=== PATIENT | male | born 1975 | race American Indian/Alaskan Native ===

== ENCOUNTER 2016-12-23 13:54 | Inpatient (IN) | payer SELFPAY ==
[2016-12-23] MEDS ORDERED: HEPARIN/NS 5000 UNIT/500ML(CATH LAB) 1,000 ML IR ONE (14:19)
[2016-12-23] MEDS ORDERED: XYLOCAINE 2% INFILTRATI ONE (14:20)
[2016-12-23] MEDS ORDERED: NITROGLYCERIN SYRINGE 3 ML ONE (14:20)
[2016-12-23] MEDS ORDERED: CALAN ONE (14:20)
[2016-12-23] MEDS ORDERED: NACL 0.9% 0 ML ONE (14:21)
[2016-12-23] MEDS ORDERED: SUBLIMAZE ONE (14:22)
[2016-12-23] MEDS ORDERED: ANGIOMAX IV ONE (14:22)
[2016-12-23] MEDS ORDERED: VERSED ONE (14:22)
[2016-12-23] MEDS ORDERED: LOPRESSOR IV ONE ×2 (14:23→15:00)
[2016-12-23] MEDS ORDERED: HEPARIN 10,000 UNITS/10 ML ONE (14:23)
[2016-12-23] MEDS ORDERED: NACL 0.9% 500 ML 500 ML ONE (14:28)
--- NOTE | 2016-12-23 14:34 | History and Physical Report ---
History of Present Illness Date of examination: 12/23/16 Date of admission: 12/23/2016 Chief complaint: chest pain History of present illness: Pt is a 41 YO male with a past medical history significant for HTN and pre-DM. He is previously unknown to our practice. He presented with c/o chest pain since yesterday AM. He reports that for the past 1 week, he has been experiencing a sore throat. He went to his PCP (in [place], [place]) on Monday and was prescribed some medications for the sore throat (he does not recall the name of the medications). Yesterday AM, he awoke with midsternal chest discomfort. He states that the discomfort is nonexertional, nonradiating and intermittent with no clear aggravating or alleviating factors. He denies any SOB, palpitations, n/v, diaphoresis, dizziness or syncope. He reports that prior to yesterday AM, he was not experiencing any chest pain and was exercising regularly without difficulty. He reports compliance with his home medications, which include amlodipine and losartan. He presented to his PCP again today with these complaints and was referred to ED for further eval/ management of abnormal EKG. Following arrival to [facility] ED, EKG demonstrated SR with ST elevations in lateral leads and code STEMI was activated. Pt was taken to lab intern for emergent LHC. Past History Past Medical History: diabetes (pre), hypertension Social history: denies: smoking, alcohol abuse, prescription drug abuse Family history: no significant family history Medications and Allergies Allergies Allergy/AdvReac Type Severity Reaction Status Date / Time No Known Allergies Allergy Unverified 12/23/16 14:19 Home Medications Medication Instructions Recorded Confirmed Last Taken Type Ibuprofen [Motrin 800 MG tab] 800 mg PO BID #30 tablet 12/23/16 Unknown Rx Losartan [Cozaar] 50 mg PO DAILY #30 tablet 12/23/16 Unknown Rx Metoprolol [Lopressor TAB] 25 mg PO BID #60 tablet 12/23/16 Unknown Rx amLODIPine [Norvasc] 10 mg PO DAILY tablet 12/23/16 Unknown Rx Review of Systems Constitutional: no weight loss, no weight gain, no fever, no chills, no sweats Ears, nose, mouth and throat: no ear pain, no nose pain, no sinus pressure, no sinus pain Cardiovascular: chest pain, high blood pressure, no orthopnea, no palpitations, no rapid/irregular heart beat, no edema, no syncope, no lightheadedness, no shortness of breath, no dyspnea on exertion, no leg edema, no decreased exercise tolerance Respiratory: no cough, no shortness of breath, no dyspnea on exertion, no congestion, no wheezing, no pain on inspiration Gastrointestinal: no abdominal pain, no nausea, no vomiting, no diarrhea, no constipation, no change in bowel habits Genitourinary Male: no dysuria, no hematuria, no flank pain, no discharge, no urinary frequency, no urinary hesitancy Musculoskeletal: no neck stiffness, no neck pain, no arm numbness/tingling, no low back pain, no shooting leg pain, no leg numbness/tingling, no redness of joints Integumentary: no rash, no pruritis, no redness, no sores, no wounds Neurological: no head injury, no paralysis, no weakness, no parathesias, no numbness, no tingling, no seizures, no syncope Psychiatric: no anxiety Endocrine: no cold intolerance, no heat intolerance Hematologic/Lymphatic: no easy bruising, no easy bleeding, no lymphadenopathy Allergic/Immunologic: no urticaria, no wheezing, no persistent infections Physical Examination Vital Signs Temp Pulse Resp BP Pulse Ox 98.5 F 116 H 16 147/91 100 12/23/16 14:19 12/23/16 14:19 12/23/16 14:19 12/23/16 14:19 12/23/16 14:19 General appearance: no acute distress HEENT: Positive: PERRL, Normocephaly, Mucus Membranes Moist Neck: Positive: neck supple, trachea midline Cardiac: Positive: S1/S2, Tachycardia Lungs: Positive: clear to auscultation Neuro: Positive: Grossly Intact, Cranial Nerve 2-12 Intact Abdomen: Positive: Unremarkable, Soft, Active Bowel Sounds. Negative: Tender Skin: Positive: Clear. Negative: Rash, Wound Musculoskeletal: No Fluid Collection, No Pain, Normal Range of Motion Extremities: Absent: edema Results - Imaging and Cardiology Echo: pending Cardiac cath: pending EKG: report reviewed, image reviewed EKG interpretations - Telemetry EKG Rhythm: Sinus Rhythm - EKG Sinus rhythms and dysrhythmias: sinus rhythm Chamber hypertrophy or enlargement: left ventricular hypertro Repolarization changes or abnormalities: repolarization abn secondary to ventricular hypertrophy, ST or T wave suggestive of ischemia Myocardial infarction: lateral NM (acute or rece Assessment and Plan Assessment: NSTEMI type II ? Pericarditis Abnormal EKG HTN Sinus tachycardia Pre-DM Plan: s/p LHC which demonstrated normal coronary arteries, normal LV function. Chest pain currently resolved. Obtain echo. Initiate motrin, 800mg BID. Initiate lopressor, 25mg PO BID. Resume home losartan and amlodipine. Admit to telemetry. Possible d/c home in AM. Assessment and plan reviewed with pt and pt's . The patient has been seen in conjunction with Dr. Mcrae who agrees with the assessment and plan of care.
[2016-12-23] MEDS: HEPARIN 10,000 UNITS/10 ML ONE ×2 (14:52→14:58)
[2016-12-23] MEDS ORDERED: NACL 0.9% 500 ML 500 ML IV SCH (15:00)
--- NOTE | 2016-12-23 15:20 | Emergency Department Report ---
ED Chest Pain HPI - General Chief Complaint: Chest Pain Stated Complaint: CHEST PAIN Time Seen by Provider: 12/23/16 14:23 Source: patient Mode of arrival: Ambulatory Limitations: No Limitations - History of Present Illness Initial Comments: Patient was sent by a family physician in [place] for evaluation of an abnormal EKG. He arrived here transported by his I private vehicle. Apparently he has been evaluated since the for as I understand it to the neck pain. The pain was in his anterior neck. His laboratory studies were unrevealing. Yesterday he tells me that the pain radiated down into his anterior chest. He had difficulty describing it. It did not radiate to his arms. It was persistent at the time of my encounter although moderate in intensity. Patient denies shortness of breath nausea vomiting or unusual sweating. He states he doesn't smoke nor does he have a first-degree relative with known coronary artery disease. He denies cocaine use. He works in the [employer] industry. He states that he's been told he is "prediabetic". An EKG was brought to my attention from triage. There was ST elevation in the high lateral leads with reciprocal changes. There was J-point elevation particularly in V2. It was meeting reasonable STEMI criteria. There by a STEMI code was called. I notified Dr. Mcrae of the history and EKG findings. Complaint: chest pain -: hour(s) (since yesterday) Onset: during rest Pain Location: substernal Severity: moderate Severity scale (0 -10): 7 Quality: other (difficult to describe) Consistency: constant (persistent) Improves With: nothing Worsens With: nothing re: denies: nausea, vomting, diaphoresis, dyspnea Other Symptoms: denies: cough, fever, syncope Treatments Prior to Arrival: none Aspirin use within the Past 7 Days: (0) No - Related Data Allergies Allergy/AdvReac Type Severity Reaction Status Date / Time No Known Allergies Allergy Unverified 12/23/16 14:19 Heart Score - HEART Score History: Moderately suspicious EKG: Significant ST-depression Age: < 45 Risk factors: 1-2 risk factors Troponin: < normal limit HEART Score: 4 ED Review of Systems ROS: Stated complaint: CHEST PAIN Other details as noted in HPI Constitutional: denies: chills, fever Eyes: denies: eye pain, eye discharge, vision change ENT: denies: ear pain, throat pain Respiratory: denies: cough, shortness of breath, wheezing Cardiovascular: as per HPI, chest pain (and neck pain as described). denies: palpitations Endocrine: no symptoms reported Gastrointestinal: denies: abdominal pain, nausea, diarrhea Genitourinary: denies: urgency, dysuria Musculoskeletal: denies: back pain, joint swelling, arthralgia Skin: denies: rash, lesions Neurological: denies: headache, weakness, paresthesias Psychiatric: denies: anxiety, depression Hematological/Lymphatic: denies: easy bleeding, easy bruising ED Past Medical Hx - Past Medical History Previous Medical History?: Yes Hx Hypertension: Yes Hx Diabetes: Yes (Pre-diabetic) - Surgical History Past Surgical History?: No - Social History Smoking Status: Never Smoker ED Physical Exam - General Limitations: No Limitations General appearance: alert, in no apparent distress - Head Head exam: Present: atraumatic, normocephalic - Eye Eye exam: Present: normal appearance, PERRL, EOMI. Absent: scleral icterus - ENT ENT exam: Present: mucous membranes moist - Neck Neck exam: Present: normal inspection. Absent: tenderness, meningismus - Respiratory Respiratory exam: Present: normal lung sounds bilaterally. Absent: respiratory distress - Cardiovascular Cardiovascular Exam: Present: regular rate, normal rhythm. Absent: systolic murmur, diastolic murmur, rubs, gallop - GI/Abdominal GI/Abdominal exam: Present: soft, normal bowel sounds. Absent: distended, tenderness, guarding, rebound, rigid - Rectal Rectal exam: Present: deferred - Extremities Exam Extremities exam: Present: normal inspection - Back Exam Back exam: Present: normal inspection - Neurological Exam Neurological exam: Present: alert, oriented X3, CN II-XII intact. Absent: motor sensory deficit - Psychiatric Psychiatric exam: Present: normal affect, normal mood - Skin Skin exam: Present: warm, dry, intact, normal color. Absent: rash ED Course Vital Signs 12/23/16 12/23/16 12/23/16 14:14 14:16 14:19 Temperature 98.5 F Pulse Rate 131 H 115 H 116 H Respiratory 18 22 16 Rate Blood Pressure 180/83 147/91 Blood Pressure [Left] O2 Sat by Pulse 99 100 100 Oximetry 12/23/16 12/23/16 12/23/16 14:27 14:30 15:06 Temperature 97.9 F Pulse Rate 113 H 95 H 116 H Respiratory 16 12 Rate Blood Pressure 145/92 180/83 Blood Pressure 150/96 [Left] O2 Sat by Pulse 100 100 Oximetry - Reevaluation(s) Reevaluation #1: Dr. Mcrae requested that we give the patient. I instructed the nurse to give this slowly with proper hemodynamic monitoring and parameters. 12/23/16 15:22 Reevaluation #2: The patient was taken for cardiac catheterization. 12/23/16 15:23 MARY score - Mary Score Age > 65: (0) No Aspirin use within the Past 7 Days: (0) No 3 or more CAD Risk Factors: (0) No 2 or more Angina events in past 24 hrs: (0) No Known CAD with more than 50% Stenosis: (0) No Elevated Cardiac Markers: (0) No ST Deviation Greater than 0.5mm: (1) Yes MARY Score: 1 ED Medical Decision Making - EKG Data -: EKG Interpreted by Me - EKG Data Interpretation: other (consistent with high lateral STEMI) Critical care attestation.: If time is entered above; I have spent that time in minutes in the direct care of this critically ill patient, excluding procedure time. ED Disposition Clinical Impression: ST elevation (STEMI) myocardial infarction Qualifiers: Involved coronary artery: unspecified coronary artery Qualified Code(s): I21.3 - ST elevation (STEMI) myocardial infarction of unspecified site Disposition: OP ADMIT IP TO THIS HOSP Is pt being admited?: Yes Does the pt Need Aspirin: Yes Condition: Stable Time of Disposition: 15:24
[2016-12-23] MEDS ORDERED: ZOFRAN IV PRN (15:24)
--- NOTE | 2016-12-23 15:40 | Discharge Summary ---
Providers - Providers Date of Admission: 12/23/2016 Date of discharge: 12/24/16 Attending physician: Dr. Mcrae 12/23/16 Consult to Cardiac Rehabilitation [CONS] Routine Reason For Exam: post pci Hospitalization Reason for admission: chest pain; abnormal EKG Condition: Stable Pertinent studies: LHC - see cath report Echo - see echo report Hospital course: Pt is a 41 YO male with a past medical history significant for HTN and pre-DM. He presented on 12/23/2016 with c/o chest pain since AM. He reports that for the past 1 week, he had been experiencing a sore throat. He went to his PCP (in [place], [place]) on Monday and was prescribed some medications for the sore throat (he does not recall the name of the medications). Yesterday AM, he awoke with midsternal chest discomfort. He states that the discomfort is nonexertional, nonradiating and intermittent with no clear aggravating or alleviating factors. He denies any SOB, palpitations, n/v, diaphoresis, dizziness or syncope. He reports that prior to yesterday AM, he was not experiencing any chest pain and was exercising regularly without difficulty. He presented to his PCP again today with these complaints and was referred to ED for further eval/management of abnormal EKG. Following arrival to [facility] ED, EKG demonstrated SR with ST elevations in lateral leads and code STEMI was activated. Pt was taken to laborer petroleum ref[facility] for emergent LHC which revealed normal coronaries, normal LV. Disposition: DC-01 TO HOME OR SELFCARE - Discharge Diagnoses (1) Non-ST elevation myocardial infarction (NSTEMI), type 2 Status: Acute (2) Normal coronary arteries Status: Chronic (3) HTN (hypertension) Status: Chronic (4) Pre-diabetes Status: Chronic Core Measure Documentation - Palliative Care Palliative Care/ Comfort Measures: Not Applicable - Core Measures Any of the following diagnoses?: acute KS - Acute KS Discharge Requirements Aspirin at discharge: Yes GODFREY/ARB for LVSD if EF <40%: Not Applicable Beta elizabeth at discharge: Yes Statin for LDL = or >100 mg/dl on DC: Yes Exam - Constitutional Vitals: Temp Pulse Resp BP Pulse Ox 97.9 F 116 H 12 180/83 100 12/23/16 14:27 12/23/16 15:06 12/23/16 14:30 12/23/16 15:06 12/23/16 14:30 Plan Activity: advance as tolerated Diet: low salt Wound: open to air, keep clean and dry, per your surgeon's advice Follow up with: JUNIOR MCRAE MD [Staff Physician] - 7 Days ([facility] office on 01/02/2017 @ 11:00AM) Prescriptions: Atorvastatin Calcium [Lipitor] 40 mg PO HS #30 tablet Ibuprofen [Motrin 800 MG tab] 800 mg PO BID #30 tablet Losartan [Cozaar] 50 mg PO DAILY #30 tablet Metoprolol [Lopressor TAB] 25 mg PO BID #60 tablet
[2016-12-23 15:46] LABS: Creatine Kinase MB 7.4 ng/mL (0.0-4.0)
--- NOTE | 2016-12-23 15:51 | Cardiac Catherization Report ---
LEFT HEART CATHETERIZATION CLINICAL INFORMATION: A 41-year-old gentleman with history of hypertension who was having chest pain since yesterday, went to his PCP and showed abnormalities in EKG, sent to the ED, showed ST elevation in lateral leads with depression inferiorly, brought emergently to cardiac cath lab radiological technologist for left heart catheterization. The procedure details of left heart catheterization, was performed in the right radial artery, sterile technique, local anesthesia. Normal Jason test. A 6-[place] radial sheath inserted. PROCEDURE FINDINGS: Left system engaged with an EBU 3.5 catheter. Left main is large and patent, bifurcates into large LAD, is patent from proximally and distally. Diagonal 1 is a medium caliber vessel, it is patent. Circumflex is a large caliber vessel, patent, goes into medium caliber OM1. OM2 that is patent. OM1 is small caliber and patent. RCA was engaged with JR4, is a large dominant vessel, patent, bifurcates into medium caliber PDA. PLV is patent. LV gram done in CYMRO and RIVAS view shows normal LV function. LVEDP of 90 mmHg, LV is 148/5. Aortic is 145/93. No gradient across the aortic valve on pullback. 6-[place] catheter was taken over a guidewire, 6-[place] radial sheath was discontinued. Radial dressing applied. No hematoma, no bleeding. The patient was chest pain free. SUMMARY: 1. Patent coronaries, epicardial vessels. No occlusive disease noted in the lateral territory. Normal LV function. 2. EKG changes, possible pericarditis. JOB# [id number] PAUL/ZOË
[2016-12-23 16:43] LABS: BUN/Creatinine Ratio 12; Blood Urea Nitrogen 15 mg/dL (9-20); Calcium 9.4 mg/dL (8.4-10.2); Carbon Dioxide 22 mmol/L (22-30); Glucose 116 mg/dL (75-100)
[2016-12-23 16:44] LABS: Anion Gap 26 mmol/L; Chloride 92.7 mmol/L (98-107); Potassium 3.5 mmol/L (3.6-5.0); Sodium 137 mmol/L (137-145)
[2016-12-23 17:00] LABS: Hematocrit 42.6 % (35.5-45.6); Hemoglobin 14.1 gm/dl (11.8-15.2); Mean Corpuscular HGB Conc 33 % (32-34); Mean Corpuscular Hemoglobin 27 pg (28-32); Mean Corpuscular Volume 82 fl (84-94); Platelet Count 362 K/mm3 (140-440); Red Blood Count 5.17 M/mm3 (3.65-5.03); Red Cell Distribution Width 15.2 % (13.2-15.2); White Blood Count 14.9 K/mm3 (4.5-11.0)
[2016-12-23 20:36] LABS: Creatine Kinase MB 5.9 ng/mL (0.0-4.0)
[2016-12-23] MEDS: LOPRESSOR PO SCH (21:24)
[2016-12-23] MEDS: COZAAR PO SCH (21:25)
[2016-12-23] MEDS ORDERED: MOTRIN PO SCH (22:00)
[2016-12-24 05:38] LABS: Basophils % (Auto) 0.4 % (0.0-1.8); Eosinophils % (Auto) 0.7 % (0.0-4.3); Hematocrit 39.3 % (35.5-45.6); Mean Corpuscular HGB Conc 33 % (32-34); Mean Corpuscular Hemoglobin 27 pg (28-32); Mean Corpuscular Volume 81 fl (84-94); Platelet Count 331 K/mm3 (140-440); Red Blood Count 4.84 M/mm3 (3.65-5.03); Red Cell Distribution Width 15.4 % (13.2-15.2); White Blood Count 12.2 K/mm3 (4.5-11.0)
[2016-12-24 06:06] LABS: Creatine Kinase MB 4.3 ng/mL (0.0-4.0)
[2016-12-24 06:11] LABS: Calcium 8.8 mg/dL (8.4-10.2); Chloride 95.4 mmol/L (98-107); Potassium 3.4 mmol/L (3.6-5.0)
--- NOTE | 2016-12-24 09:06 | XRay Report ---
FINAL REPORT EXAM: XR CHEST 1V AP HISTORY: post pci TECHNIQUE: AP portable view(s) of the chest obtained. PRIORS: None. FINDINGS: No mediastinal shift. Cardiac silhouette is not enlarged. No pneumothorax, effusion, or focal pulmonary opacity identified. No acute skeletal findings. IMPRESSION: No acute pulmonary finding identified.
[2016-12-24] MEDS: COZAAR PO SCH (09:36)
[2016-12-24] MEDS: LOPRESSOR PO SCH (09:37)
[2016-12-24 09:41] VITALS: BP 112/74
[2016-12-24] MEDS ORDERED: NORVASC PO SCH (10:00)
[2016-12-24] MEDS ORDERED: BABY ASPIRIN PO SCH (10:00)
[2016-12-24] MEDS ORDERED: K-DUR PO SCH (10:00)
== END 2016-12-24 13:04 | disposition home or self-care (01) | DRG 282 ==
LOC: ED 13:54 → 4A 14:43
PROVIDERS: ADMIT Internal Medicine; ATTEND Internal Medicine
PROC: 4A023N7 Measurement of Cardiac Sampling and Pressure, Left Heart, Percutaneous Approach (ICD-10-PCS; principal; 2016-12-23)
PROC: B2111ZZ Fluoroscopy of Multiple Coronary Arteries using Low Osmolar Contrast (ICD-10-PCS; 2016-12-23)
PROC: B2151ZZ Fluoroscopy of Left Heart using Low Osmolar Contrast (ICD-10-PCS; 2016-12-23)
DX: I21.A1 Myocardial infarction type 2 (principal); I21.3 ST elevation (STEMI) myocardial infarction of unspecified site; I10 Essential (primary) hypertension
CPT/HCPCS: 36415; 71010; 80048; 80061; 82550; 82553; 82962; 84484; 85025; 85027; 93005; 93010; 93306; A9270-GY; J0583; J1644; J2250; J3010; J7040

== ENCOUNTER 2020-01-20 00:38 | Emergency (ER) | payer OTHER ==
[2020-01-20 04:18] VITALS: BP 173/117
== END 2020-01-20 03:12 ==
LOC: ED 00:38
DX: M54.2 Cervicalgia (principal); R51.9 Headache, unspecified; Z53.21 Procedure and treatment not carried out due to patient leaving prior to being seen by health care provider

== ENCOUNTER 2020-01-26 20:58 | Emergency (ER) | payer OTHER ==
[2020-01-26 21:55] LABS: Basophils # (Auto) 0.1 K/mm3 (0.0-0.1); Basophils % (Auto) 0.9 % (0.0-1.8); Eosinophils % (Auto) 0.6 % (0.0-4.3); Hematocrit 43.2 % (35.5-45.6); Hemoglobin 14.4 gm/dl (11.8-15.2); Lymphocytes # (Auto) 2.8 K/mm3 (1.2-5.4); Lymphocytes % (Auto) 38.9 % (13.4-35.0); Mean Corpuscular HGB Conc 33 % (32-34); Mean Corpuscular Volume 84 fl (84-94); Monocytes # (Auto) 0.5 K/mm3 (0.0-0.8); Monocytes % (Auto) 7.6 % (0.0-7.3); Platelet Count 238 K/mm3 (140-440); Red Blood Count 5.11 M/mm3 (3.65-5.03); Red Cell Distribution Width 14.9 % (13.2-15.2)
--- NOTE | 2020-01-26 21:58 | XRay Report ---
CHEST 1 VIEW 01/26/2020 9:50 PM INDICATION / CLINICAL INFORMATION: Chest Pain. COMPARISON: 07/26/2019. FINDINGS: SUPPORT DEVICES: None. HEART / MEDIASTINUM: No significant abnormality. LUNGS / PLEURA: No significant pulmonary or pleural abnormality. No pneumothorax. ADDITIONAL FINDINGS: No significant additional findings. IMPRESSION: No acute cardiopulmonary abnormality. Signer Name: Jonel Vargas MD Signed: 01/26/2020 9:54 PM Workstation Name: [id number]
[2020-01-26 22:10] LABS: BUN/Creatinine Ratio 19; Blood Urea Nitrogen 23 mg/dL (9-20); Calcium 9.1 mg/dL (8.4-10.2); Hemolysis Index 16
[2020-01-27 09:02] VITALS: BP 162/116
== END 2020-01-27 09:58 ==
LOC: ED 20:58
DX: J02.9 Acute pharyngitis, unspecified (principal); Z53.21 Procedure and treatment not carried out due to patient leaving prior to being seen by health care provider
CPT/HCPCS: 36415; 71045; 80048; 84484; 85025; 93005

== ENCOUNTER 2020-06-12 20:02 | Observation (INO) | payer OTHER ==
--- NOTE | 2020-06-12 20:52 | XRay Report ---
CHEST 2 VIEWS INDICATION / CLINICAL INFORMATION: Chest Pain. COMPARISON: 01/26/2020 FINDINGS: SUPPORT DEVICES: None. HEART / MEDIASTINUM: No significant abnormality. LUNGS / PLEURA: No significant pulmonary or pleural abnormality. No pneumothorax. ADDITIONAL FINDINGS: No significant additional findings. IMPRESSION: 1. No acute findings. Signer Name: Jose Eduardo Garcia MD Signed: 06/12/2020 8:48 PM Workstation Name: [id number]
[2020-06-12 20:56] LABS: Basophils # (Auto) 0.1 K/mm3 (0.0-0.1); Basophils % (Auto) 1.2 % (0.0-1.8); Eosinophils % (Auto) 0.5 % (0.0-4.3); Hematocrit 42.7 % (35.5-45.6); Hemoglobin 14.1 gm/dl (11.8-15.2); Lymphocytes # (Auto) 2.8 K/mm3 (1.2-5.4); Lymphocytes % (Auto) 37.1 % (13.4-35.0); Mean Corpuscular HGB Conc 33 % (32-34); Mean Corpuscular Volume 87 fl (84-94); Monocytes # (Auto) 0.5 K/mm3 (0.0-0.8); Monocytes % (Auto) 6.4 % (0.0-7.3); Platelet Count 261 K/mm3 (140-440); Red Blood Count 4.93 M/mm3 (3.65-5.03); Red Cell Distribution Width 14.7 % (13.2-15.2)
[2020-06-12 21:18] LABS: Alanine Aminotransferase 25 units/L (7-56); Albumin 4.6 g/dL (3.9-5); BUN/Creatinine Ratio 13; Blood Urea Nitrogen 17 mg/dL (9-20); Calcium 9.3 mg/dL (8.4-10.2); Hemolysis Index 6
[2020-06-13] MEDS ORDERED: LIDOCAINE VISCOUS 2% 15 ML ORAL LIQD PO ONE (00:26)
[2020-06-13] MEDS ORDERED: POTASSIUM CHLORIDE ER 20 MEQ TAB PO ONE (00:26)
--- NOTE | 2020-06-13 00:31 | Emergency Department Report ---
HPI - General Chief Complaint: Chest Pain Time Seen by Provider: 06/13/20 00:14 - HPI HPI: Room 20 The patient is a 45-year-old male present with a chief complaint of chest heaviness and throat pain. Patient states he has had intermittent throat pain f or the past 4 months. Patient states 2 months ago he was sent to an ENT but states she was not given a diagnosis. Patient states he was discharged on omeprazole and famotidine but has not helped. Patient states over the past 3 weeks he has had intermittent substernal chest heaviness associated with shortness of breath. Patient currently gets his chest heaviness a score 4/10. Patient continues to complain of sore throat and a dry mouth. Patient states he has had nasal congestion but denies cough. Patient complains of pain in the throat whenever swallowing his saliva but not when eating food. Patient denies history of fever. Of note the patient states he [place] 05[place]19[place]. The patient states he's never had a stress test or cardiac catheterization ED Past Medical Hx - Past Medical History Previous Medical History?: No Hx Hypertension: Yes Hx Diabetes: Yes Additional medical history: Herniated Disc - Surgical History Past Surgical History?: No - Family History Family history: no significant - Social History Smoking Status: Never Smoker Substance Use Type: None (Denies illicit drug use), Alcohol (Occasional) - Medications Home Medications: Home Medications Medication Instructions Recorded Confirmed Last Taken Type Atorvastatin Calcium [Lipitor] 40 mg PO HS #30 tablet 12/23/16 Unknown Rx Ibuprofen [Motrin 800 MG tab] 800 mg PO BID #30 tablet 12/23/16 Unknown Rx Losartan [Cozaar] 50 mg PO DAILY #30 tablet 12/23/16 Unknown Rx Metoprolol [Lopressor TAB] 25 mg PO BID #60 tablet 12/23/16 Unknown Rx amLODIPine 10 mg PO DAILY tablet 12/23/16 Unknown Rx ED Review of Systems ROS: Stated complaint: CHEST PAIN/THROAT TIGHTNESS Other details as noted in HPI Constitutional: denies: fever Eyes: denies: eye pain ENT: throat pain Respiratory: shortness of breath. denies: cough Cardiovascular: chest pain Endocrine: no symptoms reported Gastrointestinal: denies: nausea, vomiting Genitourinary: denies: dysuria Musculoskeletal: denies: back pain Neurological: denies: headache Physical Exam - Physical Exam Vital Signs: Vital Signs 06/12/20 20:21 Temperature 97.4 F L Pulse Rate 118 H Blood Pressure 196/117 Physical Exam: GENERAL: The patient is well-developed well-nourished male lying on stretcher not appearing to be in acute distress. [] HEENT: Normocephalic. Atraumatic. Extraocular motions are intact. Patient has moist mucous membranes. Oropharynx clear. Uvula midline NECK: Supple. No meningitic signs are noted. There is no stridor CHEST/LUNGS: Clear to auscultation. There is no respiratory distress noted. HEART/CARDIOVASCULAR: Regular. There is no tachycardia. There is no gallop rub or murmur. ABDOMEN: Abdomen is soft, nontender. Patient has normal bowel sounds. There is no abdominal distention. SKIN: There is no rash. There is no edema. There is no diaphoresis. NEURO: The patient is awake, alert, and oriented. The patient is cooperative. The patient has no focal neurologic deficits. The patient has normal speech MUSCULOSKELETAL: There is no evidence of acute injury. ED Course Vital Signs 06/12/20 20:21 Temperature 97.4 F L Pulse Rate 118 H Blood Pressure 196/117 ED Medical Decision Making - Lab Data Result diagrams: 06/12/20 20:37 06/12/20 20:37 Laboratory Tests 06/12/20 06/12/20 20:37 20:37 WBC 7.5 RBC 4.93 Hgb 14.1 Hct 42.7 MCV 87 MCH 29 MCHC 33 RDW 14.7 Plt Count 261 Lymph % (Auto) 37.1 H Cherry % (Auto) 6.4 Eos % (Auto) 0.5 Baso % (Auto) 1.2 Lymph # (Auto) 2.8 Cherry # (Auto) 0.5 Eos # (Auto) 0.0 Baso # (Auto) 0.1 Seg Neutrophils % 54.8 Seg Neutrophils # 4.1 Sodium 139 Potassium 3.4 L Chloride 100.4 Carbon Dioxide 25 Anion Gap 17 BUN 17 Creatinine 1.3 Estimated GFR > 60 BUN/Creatinine Ratio 13 Glucose 186 H Calcium 9.3 Total Bilirubin 0.20 AST 21 ALT 25 Alkaline Phosphatase 84 Troponin T < 0.010 Total Protein 7.3 Albumin 4.6 Albumin/Globulin Ratio 1.7 - EKG Data -: EKG Interpreted by [place] EKG shows normal: sinus rhythm Rate: normal - EKG Data When compared to previous EKG there are: no significant change, previous EKG unavailable Interpretation: nonspecific ST-T wave charles (T wave inversions inferiorly. ST segment depressions laterally) - Radiology Data Radiology results: report reviewed (Chest x-ray), image reviewed (Chest x-ray) interpreted by me: Chest x-ray-no definite focal infiltrates, no pneumothorax. No foreign body seen [facility] [address] [place] [address] XRay Report Signed Patient: FRANK BROCK MR#: [id number] 22 : 1975 Acct:[id number] Age/Sex: 45 / M ADM Date: 06/12/20 Loc: ED Attending Dr: Ordering Physician: ED MD RANDY Date of Service: 06/12/20 Procedure(s): XR chest routine 2V Accession Number(s): [id number] cc: ED MD RANDY Fluoro Time In Minutes: CHEST 2 VIEWS INDICATION / CLINICAL INFORMATION: Chest Pain. COMPARISON: 01/26/2020 FINDINGS: SUPPORT DEVICES: None. HEART / MEDIASTINUM: No significant abnormality. LUNGS / PLEURA: No significant pulmonary or pleural abnormality. No pneumothorax. ADDITIONAL FINDINGS: No significant additional findings. IMPRESSION: 1. No acute findings. Signer Name: David Garcia MD Signed: 06/12/2020 8:48 PM Workstation Name: [id number] Transcribed By: Dictated By: DAVID GRACIA III Electronically Authenticated By: ADVID GARCIA III Signed Date/Time: 06/12/202047 DD/ 45 TD/TT: Print Cancel - Differential Diagnosis ACS, GERD, pericarditis, Critical care attestation.: If time is entered above; I have spent that time in minutes in the direct care of this critically ill patient, excluding procedure time. ED Disposition Clinical Impression: Chest pain Disposition: OP ADMIT IP TO THIS HOSP Is pt being admited?: Yes Does the pt Need Aspirin: Yes Condition: Fair Instructions: Nonspecific Chest Pain, Adult Referrals: [facility] [Other] - 3-5 Days Time of Disposition: 01:26 (Hospitalist notified (Dr Sotomayor)) Heart Score - HEART Score History: Highly suspicious EKG: Non-specific Age: < 45 Risk factors: 1-2 risk factors Troponin: < normal limit HEART Score: 4 - EKG Read Time Time EKG Completed: 20:29 EKG Read Time: 20:33
--- NOTE | 2020-06-13 00:52 | XRay Report ---
SOFT TISSUE NECK 2 views HISTORY: Throat pain. FINDINGS: Negative for soft tissue swelling or abnormal soft tissue gas. No radiopaque foreign body. Mild degenerative changes noted at the cervical spine. Signer Name: Romulo Carroll MD Signed: 06/13/2020 12:47 AM Workstation Name: [id number]
[2020-06-13] MEDS ORDERED: ASPIRIN 325 MG TAB PO ONE (01:27)
[2020-06-13] MEDS ORDERED: MAGNESIUM HYDROXIDE (MOM) ORAL LIQD UDC PO PRN (03:16)
[2020-06-13] MEDS ORDERED: ACETAMINOPHEN 325 MG TAB PO PRN ×2 (03:16)
[2020-06-13] MEDS ORDERED: DEXTROSE 50% IN WATER (25GM) 50 ML SYRINGE IV PRN (03:16)
[2020-06-13] MEDS ORDERED: traMADol 50 MG TAB PO PRN (03:16)
[2020-06-13] MEDS ORDERED: MORPHINE 4 MG/1 ML INJ IV PRN (03:16)
[2020-06-13] MEDS ORDERED: ONDANSETRON 4 MG/2 ML INJ IV PRN (03:16)
[2020-06-13] MEDS ORDERED: NITROGLYCERIN 0.4 MG TAB SUBL SL PRN (03:16)
--- NOTE | 2020-06-13 03:27 | History and Physical Report ---
History of Present Illness Date of examination: 06/13/20 Date of admission: 06/13/20 01:24 Chief complaint: Chest Heaviness History of present illness: 45-year-old male with significant past medical history of hypertension and diabetes mellitus seen in the emergency room today complaining of chest heaviness and some tightness along the throat. Tightness along the throat is said to be intermittent and has been ongoing for the past 4 months. He had been seen by an ENT physician and was discharged home on omeprazole and famotidine but he has not had any significant improvement. He was told he probably had acid reflux. He also indicates he has had multiple mouth sores in the past. In the course of the past 3 weeks patient has had substernal chest heaviness. He has had associated shortness of breath. He denies any cough, no fever or chills, no nausea vomiting, no abdominal pain. He however indicates that he has had some nasal congestion and has had some pain along the throat when he swallows. He denies any oral thrush. On a scale of 10 chest pain was said to be 4/10 in severity, no no relieving or exacerbating factor. Patient has had his first dose of COVID-19 vaccination on May 19, 2020 He has not had any stress test or cardiac catheterization in the past. Work-up in the emergency room today has been unremarkable. Patient is being admitted for chest pain evaluation. Past History Past Medical History: diabetes, hypertension, hyperlipidemia, other (Herniated Disc) Past Surgical History: No surgical history Social history: no significant social history, alcohol abuse (Occasional alcohol intake.) Family history: no significant family history Medications and Allergies Allergies Allergy/AdvReac Type Severity Reaction Status Date / Time No Known Allergies Allergy Verified 12/23/16 16:08 Home Medications Medication Instructions Recorded Confirmed Last Taken Type Atorvastatin Calcium [Lipitor] 40 mg PO HS #30 tablet 12/23/16 Unknown Rx Ibuprofen [Motrin 800 MG tab] 800 mg PO BID #30 tablet 12/23/16 Unknown Rx Losartan [Cozaar] 50 mg PO DAILY #30 tablet 12/23/16 Unknown Rx Metoprolol [Lopressor TAB] 25 mg PO BID #60 tablet 12/23/16 Unknown Rx amLODIPine 10 mg PO DAILY tablet 12/23/16 Unknown Rx Review of Systems Constitutional: no fever, no chills Ears, nose, mouth and throat: no nasal congestion, no sore throat Cardiovascular: chest pain, no palpitations Respiratory: no cough, no shortness of breath Gastrointestinal: no nausea, no vomiting, no diarrhea Genitourinary Male: no dysuria, no hematuria, no nocturia Musculoskeletal: no neck pain, no low back pain Integumentary: no rash, no pruritis Neurological: no headaches, no confusion Psychiatric: no anxiety, no depression Endocrine: no polyphagia, no polydipsia, no polyuria, no nocturia Exam - Constitutional Vitals: Temp Pulse Resp BP Pulse Ox 97.4 F L 95 H 17 152/102 98 06/12/20 20:21 06/13/20 01:49 06/13/20 01:49 06/13/20 01:23 06/13/20 01:49 General appearance: Present: no acute distress, well-nourished - EENT Eyes: Present: PERRL, EOM intact. Absent: scleral icterus ENT: hearing intact, clear oral mucosa, dentition normal - Neck Neck: Present: supple, normal ROM. Absent: masses or JVD - Respiratory Respiratory effort: normal Respiratory: bilateral: CTA - Cardiovascular Rhythm: regular Heart Sounds: Present: S1 & S2. Absent: gallop, systolic murmur, diastolic murmur, rub - Extremities Extremities: no ischemia, pulses intact, No edema, Full ROM Peripheral Pulses: within normal limits - Abdominal General gastrointestinal: Present: soft, non-tender, non-distended, normal bowel sounds. Absent: mass - Integumentary Integumentary: Present: clear, warm, dry, normal turgor. Absent: rash - Musculoskeletal Musculoskeletal: strength equal bilaterally - Psychiatric Psychiatric: appropriate mood/affect, intact judgment & insight, memory intact, cooperative - Neurologic Neurologic: CNII-XII intact, no focal deficits, moves all extremities HEART Score - HEART Score History: Moderately suspicious EKG: Non-specific Age: < 45 Risk factors: 1-2 risk factors Troponin: Troponin T < 0.010 ng/mL (0.00-0.029) 06/12/20 20:37 Troponin: < normal limit HEART Score: 3 Results - Labs CBC & Chem 7: 06/13/20 04:30 06/13/20 04:30 Labs: Abnormal lab results 06/12/20 06/12/20 Range/Units 20:37 20:37 Lymph % (Auto) 37.1 H (13.4-35.0) % Potassium 3.4 L (3.6-5.0) mmol/L Glucose 186 H (75-100) mg/dL Assessment and Plan - Patient Problems (1) Chest pain Current Visit: Yes Status: Acute Plan to address problem: Patient admitted and placed on telemetry. We will check serial cardiac enzymes. Patient placed on aspirin, sublingual nitroglycerin and IV morphine as needed for chest pain. We will request cardiology evaluation. (2) HTN (hypertension) Current Visit: No Status: Chronic Qualifiers: Hypertension type: essential hypertension Qualified Code(s): I10 - Essential (primary) hypertension Plan to address problem: We will resume routine home medications and monitor vital signs closely. (3) History of gastroesophageal reflux (GERD) Current Visit: Yes Status: Acute Plan to address problem: We will place consult to gastroenterology. Patient will be placed on proton pump inhibitor. (4) DVT prophylaxis Current Visit: Yes Status: Acute Plan to address problem: Patient placed on subcutaneous heparin. (5) Full code status Current Visit: Yes Status: Acute Plan to address problem: Patient is full code.
[2020-06-13 05:55] LABS: Basophils % (Auto) 0.6 % (0.0-1.8); Eosinophils % (Auto) 0.5 % (0.0-4.3); Hematocrit 40.8 % (35.5-45.6); Hemoglobin 13.4 gm/dl (11.8-15.2); Lymphocytes # (Auto) 2.4 K/mm3 (1.2-5.4); Lymphocytes % (Auto) 38.4 % (13.4-35.0); Mean Corpuscular HGB Conc 33 % (32-34); Mean Corpuscular Volume 86 fl (84-94); Monocytes # (Auto) 0.4 K/mm3 (0.0-0.8); Monocytes % (Auto) 6.9 % (0.0-7.3); Platelet Count 248 K/mm3 (140-440); Red Blood Count 4.75 M/mm3 (3.65-5.03); Red Cell Distribution Width 14.9 % (13.2-15.2)
[2020-06-13 06:05] LABS: BUN/Creatinine Ratio 20; Blood Urea Nitrogen 18 mg/dL (9-20); Calcium 8.8 mg/dL (8.4-10.2); Hemolysis Index 16
[2020-06-13] MEDS: HEPARIN 5,000 UNIT/1 ML VIAL SUB-Q SCH ×3 (06:07→22:16)
[2020-06-13] MEDS: INSULIN LISPRO 100 UNIT/ML SUB-Q SCH ×3 (06:08→19:09)
[2020-06-13] MEDS ORDERED: POTASSIUM CHLORIDE ER 20 MEQ TAB PO SCH (08:00)
[2020-06-13] MEDS: FAMOTIDINE 20 MG TAB PO SCH ×2 (08:08→22:13)
[2020-06-13] MEDS: METOPROLOL TARTRATE 50 MG TAB PO SCH ×2 (09:47→22:14)
[2020-06-13] MEDS: LOSARTAN 50 MG TAB PO SCH (09:47)
[2020-06-13] MEDS: amLODIPine 5 MG TAB PO SCH (09:47)
[2020-06-13] MEDS ORDERED: PANTOPRAZOLE 40 MG INJ IV SCH (10:00)
[2020-06-13] MEDS: IBUPROFEN 600 MG TAB PO SCH (10:33)
--- NOTE | 2020-06-13 11:51 | Event Note ---
Date: 06/13/20 Patient seen and examined There is a second IMS visit of the day Patient is resting in the bed alert and oriented He denies any chest pain or shortness of breath but complains of pain in the throat but denies pain with eating or drinking liquids Also complains of nasal congestion Denies any headache or fever or chills H&P reviewed Check A1c Troponin x1 - negative ? For stress test
--- NOTE | 2020-06-13 11:52 | Consultation ---
History of Present Illness Consult date: 06/13/20 Consult reason: chest pain History of present illness: The patient is a 45-year-old man with a history of hypertension, no prior car diac history. He is admitted to the hospital with chief complaints of pain in his throat. He describes this throat pain as longstanding, and is exacerbated when he swallows saliva. Yesterday, while driving, his throat pain recurred and in addition to difficulty swallowing saliva he felt acid rising from his epigastric area. He has no exertional chest pain, no shortness of breath, no palpitations, no lower extremity edema. Patient has had extensive work-up for atypical chest pain in the past, including a cardiac catheterization done in this hospital just 3 years ago, reported angiographically normal coronary arteries and normal left ventricular systolic function. On this presentation, ECG is normal sinus rhythm, left ventricular hypertrophy by voltage criteria, but otherwise normal ECG. Serial troponin levels are normal. Chest x-ray shows a normal-sized cardiac silhouette and clear lungs. Past History Past Medical History: diabetes, hypertension, hyperlipidemia, other (Herniated Disc) Past Surgical History: No surgical history Social history: no significant social history, alcohol abuse (Occasional alcohol intake.) Family history: no significant family history Medications and Allergies Allergies Allergy/AdvReac Type Severity Reaction Status Date / Time No Known Allergies Allergy Verified 12/23/16 16:08 Home Medications Medication Instructions Recorded Confirmed Last Taken Type Atorvastatin Calcium [Lipitor] 40 mg PO HS #30 tablet 12/23/16 Unknown Rx Ibuprofen [Motrin 800 MG tab] 800 mg PO BID #30 tablet 12/23/16 Unknown Rx Losartan [Cozaar] 50 mg PO DAILY #30 tablet 12/23/16 Unknown Rx Metoprolol [Lopressor TAB] 25 mg PO BID #60 tablet 12/23/16 Unknown Rx amLODIPine 10 mg PO DAILY tablet 12/23/16 Unknown Rx Active Meds: Active Medications Acetaminophen (Acetaminophen 325 Mg Tab) 650 mg PO Q4H PRN PRN Reason: Pain MILD(1-3)/Fever >100.5/BARTH Amlodipine Besylate (Amlodipine 5 Mg Tab) 10 mg PO DAILY [facility] Last Admin: 06/13/20 09:47 Dose: 10 mg Documented by: Aspirin (Aspirin Ec 325 Mg Tab) 325 mg PO QDAY [facility] Atorvastatin Calcium (Atorvastatin 40 Mg Tab) 40 mg PO HS [facility] Dextrose (Dextrose 50% In Water (25gm) 50 Ml Syringe) 50 ml IV Q30MIN PRN; Protocol PRN Reason: Hypoglycemia Famotidine (Famotidine 20 Mg Tab) 20 mg PO BID [facility] Heparin Sodium (Porcine) (Heparin 5,000 Unit/1 Ml Vial) 5,000 unit SUB-Q Q8HR [facility] Last Admin: 06/13/20 06:07 Dose: 5,000 unit Documented by: Ibuprofen (Ibuprofen 600 Mg Tab) 600 mg PO Q8H [facility] Stop: 06/15/20 02:01 Insulin Human Lispro (Insulin Lispro 100 Unit/Ml) 0 unit SUB-Q Q6HR [facility]; Protocol Last Admin: 06/13/20 06:08 Dose: Not Given Documented by: Losartan Potassium (Losartan 50 Mg Tab) 50 mg PO DAILY [facility] Last Admin: 06/13/20 09:47 Dose: 50 mg Documented by: Magnesium Hydroxide (Magnesium Hydroxide (Mom) Oral Liqd Udc) 30 ml PO Q4H PRN PRN Reason: Constipation Metoprolol Tartrate (Metoprolol Tartrate 50 Mg Tab) 25 mg PO BID [facility] Last Admin: 06/13/20 09:47 Dose: 25 mg Documented by: Morphine Sulfate (Morphine 4 Mg/1 Ml Inj) 2 mg IV Q5MIN PRN PRN Reason: Chest Pain Nitroglycerin (Nitroglycerin 0.4 Mg Tab Subl) 0.4 mg SL Q5M PRN PRN Reason: Chest Pain Ondansetron HCl (Ondansetron 4 Mg/2 Ml Inj) 4 mg IV Q8H PRN PRN Reason: Nausea And Vomiting Sodium Chloride (Sodium Chloride 0.9% 10 Ml Flush Syringe) 10 ml IV BID [facility] Last Admin: 06/13/20 09:48 Dose: 10 ml Documented by: Sodium Chloride (Sodium Chloride 0.9% 10 Ml Flush Syringe) 10 ml IV PRN PRN PRN Reason: LINE FLUSH Tramadol HCl (Tramadol 50 Mg Tab) 50 mg PO Q6H PRN PRN Reason: Pain, Moderate (4-6) Review of Systems Cardiovascular: chest pain, no orthopnea, no palpitations, no rapid/irregular heart beat, no edema, no syncope, no lightheadedness, no shortness of breath Physical Examination Vital Signs Temp Pulse BP 97.4 F L 118 H 196/117 06/12/20 20:21 06/12/20 20:21 06/12/20 20:21 General appearance: no acute distress HEENT: Positive: PERRL Neck: Positive: neck supple Cardiac: Positive: Reg Rate and Rhythm Lungs: Positive: clear to auscultation Neuro: Positive: Grossly Intact Abdomen: Positive: Soft Male genitourinary: Positive: deferred Skin: Positive: Clear Extremities: Absent: edema Results 06/13/20 04:30 06/13/20 04:30 Cardiac Enzymes 06/12/20 Range/Units 20:37 AST 21 (5-40) units/L CBC 06/12/20 06/13/20 Range/Units 20:37 04:30 WBC 7.5 6.3 (4.5-11.0) K/mm3 RBC 4.93 4.75 (3.65-5.03) M/mm3 Hgb 14.1 13.4 (11.8-15.2) gm/dl Hct 42.7 40.8 (35.5-45.6) % Plt Count 261 248 (140-440) K/mm3 Lymph # (Auto) 2.8 2.4 (1.2-5.4) K/mm3 [place] # (Auto) 0.5 0.4 (0.0-0.8) K/mm3 Eos # (Auto) 0.0 0.0 (0.0-0.4) K/mm3 Baso # (Auto) 0.1 0.0 (0.0-0.1) K/mm3 Comprehensive Metabolic Panel 06/12/20 06/13/20 Range/Units 20:37 04:30 Sodium 139 140 (137-145) mmol/L Potassium 3.4 L 3.4 L (3.6-5.0) mmol/L Chloride 100.4 101.2 (98-107) mmol/L Carbon Dioxide 25 25 (22-30) mmol/L BUN 17 18 (9-20) mg/dL Creatinine 1.3 0.9 (0.8-1.3) mg/dL Glucose 186 H 127 H (75-100) mg/dL Calcium 9.3 8.8 (8.4-10.2) mg/dL AST 21 (5-40) units/L ALT 25 (7-56) units/L Alkaline Phosphatase 84 (35-129) units/L Total Protein 7.3 (6.3-8.2) g/dL Albumin 4.6 (3.9-5) g/dL EKG interpretations - Telemetry EKG Rhythm: Sinus Rhythm Assessment and Plan - Patient Problems (1) Atypical chest pain Current Visit: Yes Status: Acute Plan to address problem: Patient's chest pain is atypical, consists of throat pain when he swallows saliva and other symptoms of gastroesophageal reflux. There is no anginal type symptoms, ECG is normal, troponin levels are normal, and patient had a normal cardiac catheterization just 3 years ago. No further coronary artery disease work-up is indicated at the current time.
--- NOTE | 2020-06-13 16:36 | Gastroenterology Consultation ---
History of Present Illness - Reason for Consult Consult date: 06/13/20 gerd Requesting physician: PANCHO FROST - History of Present Illness This is a 45 yo male with pmh of HTN and DM and chronic constipation admitted overnight for chest pain. GI consulted for GERD and throat pain. Patient has been having throat pain with swallowing saliva and eating. He was seen by ENT and placed on omeprazole and famotidine for oever several months without relief. Symptoms on-going for 3-4 months. He also reports upper abdominal pain without radiation. No blood in the stools or melena. He is scheduled for GI clinic visit on 07/07/2020. Previously seen by Dr. Rae at [facility] and had colonoscopy in 2019 with normal results but fair prep. Previous EGD in [address] oWods showing mild gastritis. Path negative for H pylori. He is evaluated by cardiology and notes negative cardiac cath 3 years ago. Medication list reviewed. Past History Past Medical History: diabetes, hypertension, hyperlipidemia, other (Herniated Disc) Past Surgical History: No surgical history Social history: no significant social history, alcohol abuse (Occasional alcohol intake.) Family history: no significant family history Medications and Allergies Allergies Allergy/AdvReac Type Severity Reaction Status Date / Time No Known Allergies Allergy Verified 12/23/16 16:08 Home Medications Medication Instructions Recorded Confirmed Last Taken Type Atorvastatin Calcium [Lipitor] 40 mg PO HS #30 tablet 12/23/16 Unknown Rx Ibuprofen [Motrin 800 MG tab] 800 mg PO BID #30 tablet 12/23/16 Unknown Rx Losartan [Cozaar] 50 mg PO DAILY #30 tablet 12/23/16 Unknown Rx Metoprolol [Lopressor TAB] 25 mg PO BID #60 tablet 12/23/16 Unknown Rx amLODIPine 10 mg PO DAILY tablet 12/23/16 Unknown Rx Active Meds: Active Medications Acetaminophen (Acetaminophen 325 Mg Tab) 650 mg PO Q4H PRN PRN Reason: Pain MILD(1-3)/Fever >100.5/BARTH Amlodipine Besylate (Amlodipine 5 Mg Tab) 10 mg PO DAILY [facility] Last Admin: 06/13/20 09:47 Dose: 10 mg Documented by: Aspirin (Aspirin Ec 325 Mg Tab) 325 mg PO QDAY [facility] Atorvastatin Calcium (Atorvastatin 40 Mg Tab) 40 mg PO HS [facility] Dextrose (Dextrose 50% In Water (25gm) 50 Ml Syringe) 50 ml IV Q30MIN PRN; Protocol PRN Reason: Hypoglycemia Famotidine (Famotidine 20 Mg Tab) 20 mg PO BID [facility] Last Admin: 06/13/20 08:08 Dose: Not Given Documented by: Heparin Sodium (Porcine) (Heparin 5,000 Unit/1 Ml Vial) 5,000 unit SUB-Q Q8HR [facility] Last Admin: 06/13/20 14:32 Dose: Not Given Documented by: Ibuprofen (Ibuprofen 600 Mg Tab) 600 mg PO Q8H [facility] Stop: 06/15/20 02:01 Last Admin: 06/13/20 10:33 Dose: Not Given Documented by: Insulin Human Lispro (Insulin Lispro 100 Unit/Ml) 0 unit SUB-Q Q6HR [facility]; Protocol Last Admin: 06/13/20 12:37 Dose: Not Given Documented by: Losartan Potassium (Losartan 50 Mg Tab) 50 mg PO DAILY [facility] Last Admin: 06/13/20 09:47 Dose: 50 mg Documented by: Magnesium Hydroxide (Magnesium Hydroxide (Mom) Oral Liqd Udc) 30 ml PO Q4H PRN PRN Reason: Constipation Metoprolol Tartrate (Metoprolol Tartrate 50 Mg Tab) 25 mg PO BID [facility] Last Admin: 06/13/20 09:47 Dose: 25 mg Documented by: Morphine Sulfate (Morphine 4 Mg/1 Ml Inj) 2 mg IV Q5MIN PRN PRN Reason: Chest Pain Nitroglycerin (Nitroglycerin 0.4 Mg Tab Subl) 0.4 mg SL Q5M PRN PRN Reason: Chest Pain Ondansetron HCl (Ondansetron 4 Mg/2 Ml Inj) 4 mg IV Q8H PRN PRN Reason: Nausea And Vomiting Sodium Chloride (Sodium Chloride 0.9% 10 Ml Flush Syringe) 10 ml IV BID [facility] Last Admin: 06/13/20 09:48 Dose: 10 ml Documented by: Sodium Chloride (Sodium Chloride 0.9% 10 Ml Flush Syringe) 10 ml IV PRN PRN PRN Reason: LINE FLUSH Tramadol HCl (Tramadol 50 Mg Tab) 50 mg PO Q6H PRN PRN Reason: Pain, Moderate (4-6) Review of Systems - Review of Systems All systems: negative Constitutional: no weight loss, no weight gain Ears, Nose, Throat: no decreased hearing Cardiovascular: chest pain Gastrointestinal: abdominal pain, nausea, constipation, early satiety, heartburn, no change in bowel habits, no hematemesis, no coffee ground emesis, no BRBPR, no melena, no hematochezia Neurological: no weakness Psychiatric: no anxiety Endocrine: no cold intolerance Hematologic/Lymphatic: no easy bruising Allergic/Immunologic: no wheezing Exam - Constitutional Vital Signs: Temp Pulse Resp BP Pulse Ox 97.4 F L 60 16 133/98 99 06/12/20 20:21 06/13/20 16:09 06/13/20 03:50 06/13/20 03:50 06/13/20 03:50 General appearance: no acute distress - EENT Eyes: EOM intact ENT: hearing intact - Neck Neck: supple - Respiratory Respiratory effort: normal - Cardiovascular Rhythm: regular Heart Sounds: Present: S1 & S2 - Gastrointestinal General gastrointestinal: Present: soft, non-tender, non-distended, normal bowel sounds - Integumentary Integumentary: Present: clear, warm - Neurologic Neurological: alert and oriented x3 - Labs CBC & Chem 7: 06/13/20 04:30 06/13/20 04:30 Lab Results: Laboratory Results - last 24 hr 06/12/20 06/12/20 06/13/20 20:37 20:37 04:30 WBC 7.5 6.3 RBC 4.93 4.75 Hgb 14.1 13.4 Hct 42.7 40.8 MCV 87 86 MCH 29 28 MCHC 33 33 RDW 14.7 14.9 Plt Count 261 248 Lymph % (Auto) 37.1 H 38.4 H [place] % (Auto) 6.4 6.9 Eos % (Auto) 0.5 0.5 Baso % (Auto) 1.2 0.6 Lymph # (Auto) 2.8 2.4 [place] # (Auto) 0.5 0.4 Eos # (Auto) 0.0 0.0 Baso # (Auto) 0.1 0.0 Seg Neutrophils % 54.8 53.6 Seg Neutrophils # 4.1 3.4 Sodium 139 Potassium 3.4 L Chloride 100.4 Carbon Dioxide 25 Anion Gap 17 BUN 17 Creatinine 1.3 Estimated GFR > 60 BUN/Creatinine Ratio 13 Glucose 186 H POC Glucose Hemoglobin A1c Calcium 9.3 Total Bilirubin 0.20 AST 21 ALT 25 Alkaline Phosphatase 84 Troponin T < 0.010 Total Protein 7.3 Albumin 4.6 Albumin/Globulin Ratio 1.7 06/13/20 06/13/20 06/13/20 04:30 04:30 06:06 WBC RBC Hgb Hct MCV MCH MCHC RDW Plt Count Lymph % (Auto) [place] % (Auto) Eos % (Auto) Baso % (Auto) Lymph # (Auto) [place] # (Auto) Eos # (Auto) Baso # (Auto) Seg Neutrophils % Seg Neutrophils # Sodium 140 Potassium 3.4 L Chloride 101.2 Carbon Dioxide 25 Anion Gap 17 BUN 18 Creatinine 0.9 Estimated GFR > 60 BUN/Creatinine Ratio 20 Glucose 127 H POC Glucose 166 H Hemoglobin A1c 6.0 Calcium 8.8 Total Bilirubin AST ALT Alkaline Phosphatase Troponin T Total Protein Albumin Albumin/Globulin Ratio 06/13/20 06/13/20 09:27 12:21 WBC RBC Hgb Hct MCV MCH MCHC RDW Plt Count Lymph % (Auto) [place] % (Auto) Eos % (Auto) Baso % (Auto) Lymph # (Auto) [place] # (Auto) Eos # (Auto) Baso # (Auto) Seg Neutrophils % Seg Neutrophils # Sodium Potassium Chloride Carbon Dioxide Anion Gap BUN Creatinine Estimated GFR BUN/Creatinine Ratio Glucose POC Glucose 100 Hemoglobin A1c Calcium Total Bilirubin AST ALT Alkaline Phosphatase Troponin T < 0.010 Total Protein Albumin Albumin/Globulin Ratio Assessment and Plan This is a 45 yo male with pmh of HTN and DM and chronic constipation admitted overnight for chest pain. GI consulted for GERD and throat pain. # GERD # Throat pain - on-going for the past several months. - ddx including esophagitis, GERD, vs H pylori. - previous EGD in 2013 with path showing mild chronic gastritis. h pylori negative. - Colonoscopy in 2019 with normal findings - further work up including repeat EGD can be pursued as outpatient. - cont with PPI oral - can add sucralfate bid if needed - patient to follow up with GI outpatient clinic. - discussed with Hospitalist. - will sign off. please call if needed. - Patient Problems (1) History of gastroesophageal reflux (GERD) Current Visit: Yes Status: Acute
[2020-06-13] MEDS: PANTOPRAZOLE 40 MG TAB PO SCH (17:09)
[2020-06-14] MEDS: INSULIN LISPRO 100 UNIT/ML SUB-Q SCH ×2 (01:36→05:33)
[2020-06-14] MEDS: IBUPROFEN 600 MG TAB PO SCH ×2 (01:37→09:23)
[2020-06-14] MEDS: HEPARIN 5,000 UNIT/1 ML VIAL SUB-Q SCH (05:33)
[2020-06-14 06:50] LABS: Basophils % (Auto) 0.8 % (0.0-1.8); Eosinophils # (Auto) 0.1 K/mm3 (0.0-0.4); Eosinophils % (Auto) 1.3 % (0.0-4.3); Hematocrit 42.4 % (35.5-45.6); Hemoglobin 14.1 gm/dl (11.8-15.2); Lymphocytes # (Auto) 2.3 K/mm3 (1.2-5.4); Lymphocytes % (Auto) 48.2 % (13.4-35.0); Mean Corpuscular HGB Conc 33 % (32-34); Mean Corpuscular Volume 87 fl (84-94); Monocytes # (Auto) 0.5 K/mm3 (0.0-0.8); Monocytes % (Auto) 11.1 % (0.0-7.3); Platelet Count 243 K/mm3 (140-440); Red Blood Count 4.88 M/mm3 (3.65-5.03); Red Cell Distribution Width 14.9 % (13.2-15.2)
[2020-06-14 06:56] LABS: INR 0.95 (0.87-1.13)
[2020-06-14 07:42] LABS: BUN/Creatinine Ratio 18; Blood Urea Nitrogen 16 mg/dL (9-20); Calcium 8.8 mg/dL (8.4-10.2); Hemolysis Index 6
[2020-06-14] MEDS: PANTOPRAZOLE 40 MG TAB PO SCH (08:12)
[2020-06-14 08:23] VITALS: BP 143/98
--- NOTE | 2020-06-14 09:17 | Discharge Summary ---
Providers - Providers Date of Admission: 06/13/20 01:24 Date of discharge: 06/14/20 Attending physician: ALBERT TRAN 06/13/20 Consult to Cardiac Rehabilitation [CONS] Routine Reason For Exam: Phase I 06/13/20 03:16 Consult to Cardiology [CONS] Routine Consulting Provider: MAGGIE GUZMAN Reason For Exam: chest pain Consult to Dietitian/Nutrition [CONS] Routine Physician Instructions: Reason For Exam: Reason for Consult: Diet education Consult to Physician [CONS] Routine Comment: Consulting Provider: PING OTERO Physician Instructions: Reason For Exam: Throat pain,difficulty swallowing,h/o GERD Hospitalization Condition: Fair Hospital course: 45-year-old male with significant past medical history of hypertension and diabetes mellitus seen in the emergency room today complaining of chest heaviness and some tightness along the throat. Tightness along the throat is said to be intermittent and has been ongoing for the past 4 months. He had been seen by an ENT physician and was discharged home on omeprazole and famotidine but he has not had any significant improvement. He was told he probably had acid reflux. He also indicates he has had multiple mouth sores in the past. In the course of the past 3 weeks patient has had substernal chest heaviness. He has had associated shortness of breath. He denies any cough, no fever or chi lls, no nausea vomiting, no abdominal pain. He however indicates that he has had some nasal congestion and has had some pain along the throat when he swallows. He denies any oral thrush. On a scale of 10 chest pain was said to be 4/10 in severity, no no relieving or exacerbating factor. Patient has had his first dose of COVID-19 vaccination on May 19, 2020 He has not had any stress test or cardiac catheterization in the past. Work-up in the emergency room today has been unremarkable. Patient is being admitted for chest pain evaluation. Assessment and plan Chest pain-atypical DE ruled out with serial troponins Cardiology consulted and note reviewed Patient had extensive cardiac work-up in the past No further recommendations GERD GI note reviewed Outpatient follow-up with GI for possible EGD Will discharge the patient on PPI and sucralfate Throat pain Likely secondary to GERD Hypertension Well-controlled Continue present medications Rx provided Disposition: TO HOME OR SELFCARE Final Discharge Diagnosis (Prints w/discharge instructions): chest pain Time spent for discharge: 34 min Core Measure Documentation - Palliative Care Palliative Care/ Comfort Measures: Not Applicable - Core Measures Any of the following diagnoses?: none Exam - Constitutional Vitals: Temp Pulse Resp BP Pulse Ox 98.6 F 59 L 12 143/98 100 06/14/20 08:22 06/14/20 08:22 06/14/20 08:22 06/14/20 08:22 06/14/20 08:22 General appearance: Present: no acute distress, well-nourished - EENT Eyes: Present: PERRL, EOM intact ENT: hearing intact, clear oral mucosa - Neck Neck: Present: supple, normal ROM - Respiratory Respiratory effort: normal Respiratory: bilateral: CTA - Cardiovascular Rhythm: regular Heart Sounds: Present: S1 & S2 - Extremities Extremities: No edema - Abdominal General gastrointestinal: Present: soft, non-tender. Absent: hepatomegaly, splenomegaly Male genitourinary: Present: deferred - Rectal Rectal Exam: deferred - Integumentary Integumentary: Present: clear - Musculoskeletal Musculoskeletal: strength equal bilaterally - Psychiatric Psychiatric: appropriate mood/affect Plan Activity: no restrictions Weight Bearing Status: Full Weight Bearing Diet: regular, low fat, low cholesterol, low salt Follow up with: ELIZABETH JAIME [Other] - 3-5 Days MIN,ADI DANG MD [Staff Physician] - 14 Days Prescriptions: amLODIPine 10 mg PO DAILY #30 tablet Sucralfate [Carafate] 1 gm PO ACHS #120 tablet Losartan [Cozaar] 50 mg PO DAILY #30 tablet Metoprolol [Lopressor TAB] 25 mg PO BID #60 tablet Pantoprazole [Protonix TAB] 40 mg PO QDAC #30 tablet
[2020-06-14] MEDS: amLODIPine 5 MG TAB PO SCH (09:18)
[2020-06-14] MEDS: LOSARTAN 50 MG TAB PO SCH (09:19)
[2020-06-14] MEDS: METOPROLOL TARTRATE 50 MG TAB PO SCH (09:21)
[2020-06-14] MEDS ORDERED: ASPIRIN EC 325 MG TAB PO SCH (10:00)
--- NOTE | 2020-06-15 11:10 | Electrocardiograph Report ---
[facility] Test Date: 2020-06-12 Test Time: 20:29:04 Pat Name: FRANK BROCK Department: Room: A463 1 Gender: M Clinical Counselor: Andrea GRANDA : 1975 Requested By: BRADFORD BENJAMIN Order Number: [id number] Reading MD: Raymond Kumari Measurements Intervals [place] Rate: 95 P: 39 OR: 174 QRS: 27 QRSD: 85 T: -24 QT: 340 QTc: 428 Interpretive Statements Sinus rhythm Probable left atrial enlargement Borderline T abnormalities, diffuse leads No previous ECG available for comparison Electronically Signed On 06-15-2020 11:10:00 EDT by Raymond Kumari
== END 2020-06-14 10:00 | disposition home or self-care (01) ==
LOC: ED 20:02 → 4A 06-13 01:24
PROVIDERS: ADMIT Internal Medicine Geriatric Medicine; ATTEND Internal Medicine
DX: R07.89 Other chest pain (principal); I10 Essential (primary) hypertension; K21.9 Gastro-esophageal reflux disease without esophagitis; E11.9 Type 2 diabetes mellitus without complications; E78.5 Hyperlipidemia, unspecified; Z98.890 Other specified postprocedural states; Z79.899 Other long term (current) drug therapy; Z79.4 Long term (current) use of insulin
CPT/HCPCS: 36415; 70360; 71046; 80048; 80053; 82962; 83036; 84484; 85025; 85610; 93005; 96372; 99285; A9270; G0378; J1644